=== PATIENT | male | born 1950 | race Caucasian/White ===

== ENCOUNTER 2021-12-22 12:33 | Outpatient (CLI) | payer BC ==
[2021-12-22 13:28] LABS: Hemoglobin 12.9 g/dL (13.5-17.5); Mean Corpuscular HGB CONC 33.6 g/dL (32.0-36.0); Mean Corpuscular Hemoglobin 31.2 pg (27.0-33.0); Mean Corpuscular Volume 92.8 fl (81.2-95.1); Mean Platelet Volume 10.6 fl (7.4-10.4); Platelet Count 258 10x3/uL (150-450); RBC Distribution Width 14.7 % (11.5-14.5); Red Blood Cell (RBC) Count 4.14 10x6/uL (4.32-5.72); White Blood Cell (WBC) Count 7.8 10x3/uL (3.5-10.5)
[2021-12-22 13:42] LABS: Anion Gap 14 mmol/L (10-20); BUN (Urea Nitrogen) 38 mg/dL (8.4-25.7); Calc. Creatinine Clearance 0 mL/min (70-130); Calcium 9.1 mg/dL (7.8-10.44); Carbon Dioxide 22 mmol/L (23-31); Chloride 110 mmol/L (98-107); Estimated GFR 60; Glucose 87 mg/dL (80-115); Potassium 4.9 mmol/L (3.5-5.1); Sodium 141 mmol/L (136-145)
== END 2021-12-22 12:34 | disposition home or self-care (01) ==
LOC: CSHLAB 12:33
PROVIDERS: ATTEND Podiatrist Foot & Ankle Surgery
DX: Z01.812 Encounter for preprocedural laboratory examination (principal); M77.41 Metatarsalgia, right foot
CPT/HCPCS: 80048; 85027

== ENCOUNTER 2021-12-27 10:48 | Day surgery (SDC) | payer BC ==
[2021-12-22 13:03] VITALS: BMI 24.1
[2021-12-27] MEDS ORDERED: Bupivacaine PF 0.5% 30 ML VIAL ONE (12:33)
[2021-12-27] MEDS ORDERED: Neomycin-Polymyxin 1 ML AMP ONE (12:34)
[2021-12-27] MEDS ORDERED: PROPOFOL 20 ML ONE (13:14)
[2021-12-27] MEDS ORDERED: Lidocaine 1% PF 5 ML VIAL ONE (13:15)
[2021-12-27] MEDS ORDERED: Ketorolac Tromethamine 30 MG/ML VIAL ONE (13:15)
[2021-12-27] MEDS ORDERED: Dexamethasone 20 MG/5 ML VIAL ONE (13:15)
[2021-12-27] MEDS ORDERED: Ondansetron PF 4 MG/2 ML Vial ONE (13:15)
[2021-12-27] MEDS ORDERED: Fentanyl 100 MCG/2 ML VIAL ONE (13:15)
[2021-12-27] MEDS ORDERED: Midazolam HCl 2 mg/2 ml Vial ONE ×2 (13:15→13:16)
[2021-12-27] MEDS ORDERED: CEFAZOLIN 2 GM VIAL ONE (13:19)
== END 2021-12-27 15:30 | disposition home or self-care (01) ==
LOC: CSHSDC 10:48
PROVIDERS: ATTEND Podiatrist Foot & Ankle Surgery
PROC: 0QBN0ZZ Excision of Right Metatarsal, Open Approach (ICD-10-PCS; principal; 2021-12-27)
DX: M77.41 Metatarsalgia, right foot (principal); M84.374A Stress fracture, right foot, initial encounter for fracture; L56.5 Disseminated superficial actinic porokeratosis (DSAP); I10 Essential (primary) hypertension; N40.0 Benign prostatic hyperplasia without lower urinary tract symptoms; M19.90 Unspecified osteoarthritis, unspecified site; Z79.899 Other long term (current) drug therapy; Z87.891 Personal history of nicotine dependence; Z98.890 Other specified postprocedural states
CPT/HCPCS: J0690; J1100; J1885; J2250; J2405; J2704; J3010; S0020

== ENCOUNTER 2022-12-28 18:21 | Emergency (ER) | payer OTHER, BC ==
[2022-12-28] MEDS ORDERED: Morphine 4 MG/ML VIAL ONE (19:21)
[2022-12-28] MEDS ORDERED: Ondansetron PF 4 MG/2 ML Vial ONE (19:21)
[2022-12-28] MEDS ORDERED: PROPOFOL 20 ML ONE (19:56)
== END 2022-12-28 20:55 | disposition home or self-care (01) ==
LOC: CSHERS 18:21
DX: S43.085A Other dislocation of left shoulder joint, initial encounter (principal); I10 Essential (primary) hypertension; W01.0XXA Fall on same level from slipping, tripping and stumbling without subsequent striking against object, initial encounter
CPT/HCPCS: 23650; 96374; 96375; J2270; J2405; J2704

== ENCOUNTER 2022-12-30 18:34 | Emergency (ER) | payer BC | END 2022-12-30 19:05 | disposition left against medical advice (07) | LOC: CSHERS 18:34 | DX: Z53.21 Procedure and treatment not carried out due to patient leaving prior to being seen by health care provider (principal) ==